=== PATIENT | male | born 1960 | race African-American/Black ===

== ENCOUNTER 2024-05-01 02:54 | Emergency (ER) | payer OTHER ==
[~2024-05-01] VITALS: Ht 175.3 cm; Wt 81.8 kg
[~2024-05-01 02:54] MED LIST: AMLO-258 PO
[2024-05-01 02:58] VITALS: TEMP 98
[2024-05-01 03:51] LABS: BASOPHILS % (AUTO) 1.1 % (0.0-2.0); EOSINOPHILS % (AUTO) 1.8 % (1.0-6.0); HEMATOCRIT 45.8 % (41-53); HEMOGLOBIN 15.4 g/dL (13.5-17.5); LYMPHOCYTES # (AUTO) 1.5 K/uL (1.0-4.8); LYMPHOCYTES % (AUTO) 24.2 % (22.0-44.0); MEAN CORPUSCULAR HEMOGLOBIN 29.2 pg (26.0-34.0); MEAN CORPUSCULAR HGB CONC 33.7 G/dL (31.0-37.0); MEAN CORPUSCULAR VOLUME 87 fL (80-100); MONOCYTES # (AUTO) 0.7 K/uL (0.1-1.0); MONOCYTES % (AUTO) 10.7 % (2.0-9.0); NEUTROPHILS # (AUTO) 3.8 K/uL (1.8-7.7); NEUTROPHILS % (AUTO) 62.2 % (40.0-70.0); PLATELET COUNT (AUTO) 228 K/uL (150-450); RED BLOOD CELL COUNT(AUTO) 5.27 MIL/uL (4.50-5.90); RED CELL DISTRIBUTION WIDTH 16.4 % (11.5-14.5); WHITE BLOOD COUNT (AUTO) 6.1 K/uL (4.5-11.0)
[2024-05-01 03:58] LABS: CALCIUM, TOTAL 9.4 mg/dL (8.8-10.5); CREATININE 1.44 mg/dL (0.60-1.30); POTASSIUM 3.3 mmol/L (3.5-5.1)
[2024-05-01 04:05] LABS: TROPONIN I-HIGH SENSITIVITY 25 ng/L (<76)
[2024-05-01] MEDS: SODIUM CHLORIDE 0.9% 1,000 ML IV ONE (04:22)
[2024-05-01 07:19] VITALS: BP 107/68; PULSE 79; RESP 16; O2SAT 98
== END 2024-05-01 08:20 | disposition home or self-care (01) ==
LOC: EMS 02:54
DX: T50.1X1A Poisoning by loop [high-ceiling] diuretics, accidental (unintentional), initial encounter (principal); I11.0 Hypertensive heart disease with heart failure; I50.9 Heart failure, unspecified; F17.210 Nicotine dependence, cigarettes, uncomplicated; Z79.899 Other long term (current) drug therapy; Y92.89 Other specified places as the place of occurrence of the external cause
CPT/HCPCS: 99285; 96360; 71045; 80048; 83880; 84484; 85025; 36415; 93005; J7030

== ENCOUNTER 2024-05-10 15:21 | Emergency (ER) | payer OTHER ==
[~2024-05-10] VITALS: Ht 177.8 cm; Wt 68.2 kg
[2024-05-10 15:28] VITALS: BP 131/83; PULSE 76; RESP 18; TEMP 98.8; O2SAT 99
[2024-05-10] MEDS ORDERED: ATOR40TA71 PO (15:28)
[2024-05-10] MEDS ORDERED: FURO40TA5 PO (15:28)
[2024-05-10] MEDS ORDERED: RIVA20TA PO (15:28)
[2024-05-10] MEDS ORDERED: SACU1TAB PO (15:28)
[2024-05-10 15:44] LABS: COVID AG,FIA SOURCE NASAL SWAB
[2024-05-10 16:07] LABS: INFLUENZA TYPE A NEGATIVE FOR TYPE A (NEGATIVE); INFLUENZA TYPE B NEGATIVE FOR TYPE B (NEGATIVE); SARS-COV2 (COVID) ANTIGEN,FIA Negative (Negative)
== END 2024-05-10 19:30 | disposition home or self-care (01) ==
LOC: EMS 15:21
DX: F17.210 Nicotine dependence, cigarettes, uncomplicated (principal); R05.9 Cough, unspecified; I10 Essential (primary) hypertension; Z79.01 Long term (current) use of anticoagulants; Z20.822 Contact with and (suspected) exposure to COVID-19; Z98.890 Other specified postprocedural states
CPT/HCPCS: 87804; 99283; 99406

== ENCOUNTER 2024-05-31 10:59 | Emergency (ER) | payer OTHER ==
[~2024-05-31] VITALS: Ht 175.3 cm; Wt 85.7 kg
[~2024-05-31 10:59] MED LIST changes: +ATOR40TA71 PO; +FURO40TA5 PO; +RIVA20TA PO; +SACU1TAB PO
[2024-05-31 11:47] VITALS: BP 204/110; PULSE 72; RESP 18; TEMP 97.6; O2SAT 96
== END 2024-05-31 14:53 | disposition left against medical advice (07) ==
LOC: EMS 11:00
DX: R10.30 Lower abdominal pain, unspecified (principal); Z53.21 Procedure and treatment not carried out due to patient leaving prior to being seen by health care provider

== ENCOUNTER 2024-05-31 16:00 | Emergency (ER) | payer OTHER ==
[~2024-05-31] VITALS: Ht 175.3 cm; Wt 75.0 kg
[2024-05-31 16:07] VITALS: BP 145/113; PULSE 119; RESP 18; TEMP 98.1; O2SAT 99
== END 2024-05-31 19:02 | disposition left against medical advice (07) ==
LOC: EMS 16:00
DX: I10 Essential (primary) hypertension (principal); Z53.21 Procedure and treatment not carried out due to patient leaving prior to being seen by health care provider